=== PATIENT | male | born 1980 | race Caucasian/White ===

== ENCOUNTER → 2021-05-14 | Outpatient (REF) ==
--- NOTE | 2021-05-14 11:24 | REP ---
INDICATION: PAIN. COMPARISON: None. TECHNIQUE: Three views of the right shoulder were performed. FINDINGS: The acromioclavicular and glenohumeral relationships are within normal limits. There is no acute fracture or destructive osseous lesion. IMPRESSION: Within normal limits <Electronically signed by Asif Kirk > 05/14/21 1121
== END ==
LOC: M PLAIMG 10:24
PROVIDERS: ATTEND Internal Medicine
DX: M25.511 Pain in right shoulder (principal)